=== PATIENT | female | born 1995 | race Two or more races ===

== ENCOUNTER → 2024-06-16 | Outpatient (CLI) | payer OTHER ==
[2024-06-16 13:04] LABS: HEMATOCRIT 33.3 % (36.0-47.0); HEMOGLOBIN 9.9 g/dl (12.0-15.5); MEAN CORPUSCULAR HEMOGLOBIN 22.7 pg (27.0-33.0); MEAN CORPUSCULAR HGB CONC 29.7 g/dl (32.0-36.5); MEAN CORPUSCULAR VOLUME 76.4 fl (80.0-96.0); PLATELET COUNT, AUTOMATED 301 10^3/uL (150-450); RED BLOOD COUNT 4.36 10^6/uL (4.00-5.40); WHITE BLOOD COUNT 8.9 10^3/uL (4.0-10.0)
[2024-06-16 13:33] LABS: HIV 1&2 SCREEN NEGATIVE (NEGATIVE)
[2024-06-16 13:41] LABS: HEPATITIS C VIRUS ABY INDEX 0.06 INDEX (<0.8)
[2024-06-16 15:06] LABS: Trichomonas vaginalis (AMP) NOT DETECTED (NEGATIVE)
[2024-06-19 14:41] LABS: GC DNA AMPLIFICATION NEGATIVE (NEGATIVE)
== END ==
LOC: M PLALAB 09:37
PROVIDERS: ATTEND Obstetrics & Gynecology
DX: Z34.80 Encounter for supervision of other normal pregnancy, unspecified trimester (principal)

== ENCOUNTER → 2024-06-21 | Outpatient (CLI) | payer OTHER | LOC: M RAD 15:37 | PROVIDERS: ATTEND Obstetrics & Gynecology | DX: Z34.80 Encounter for supervision of other normal pregnancy, unspecified trimester (principal); Z3A.24 24 weeks gestation of pregnancy ==

== ENCOUNTER → 2024-08-31 | Outpatient (CLI) | payer OTHER ==
[2024-08-31 15:21] LABS: PLATELET COUNT, AUTOMATED 246 10^3/uL (150-450)
[2024-08-31 15:51] LABS: GLUCOSE CHALLENGE TEST 1 HOUR 59 MG/DL (LESS THAN 140)
[2024-08-31 16:20] LABS: HIV 1&2 SCREEN NEGATIVE (NEGATIVE)
[2024-08-31 16:28] LABS: HEPATITIS C VIRUS ABY INDEX < 0.02 INDEX (<0.8)
[2024-08-31 16:41] LABS: GC DNA AMPLIFICATION NEGATIVE (NEGATIVE)
[2024-08-31 16:57] LABS: Trichomonas vaginalis (AMP) NOT DETECTED (NEGATIVE)
== END ==
LOC: M PLALAB 10:13
PROVIDERS: ATTEND Advanced Practice Midwife
DX: Z34.83 Encounter for supervision of other normal pregnancy, third trimester (principal)

== ENCOUNTER → 2024-09-14 | Outpatient (CLI) | payer OTHER | LOC: M RAD 11:11 | PROVIDERS: ATTEND Advanced Practice Midwife | DX: O26.849 Uterine size-date discrepancy, unspecified trimester (principal) ==

== ENCOUNTER → 2024-09-26 | Outpatient (REF) | payer OTHER | LOC: M SFHCWAGY 16:41 | PROVIDERS: ATTEND Advanced Practice Midwife | DX: Z34.93 Encounter for supervision of normal pregnancy, unspecified, third trimester (principal) ==

== ENCOUNTER 2024-10-06 13:05 | Outpatient (CLI) | payer OTHER ==
[~2024-10-06 13:05] MED LIST: ALBUTEROL SULFATE 2.5 MG/0.5 ML INH CONCENTRATE NEB SOLN INH PRN; EPINEPHrine INJ 1 MG/ML 1ML AMP IM PRN; diphenhydrAMINE 50 MG/ML VIAL IV PRN
[2024-10-06 13:15] VITALS: BP 125/77; O2SAT 99
[2024-10-06] MEDS: FERRIC CARBOXYMALTOSE 750 MG (VIAL MATE) IN 100ML NS IV ONE (13:22)
[2024-10-06 14:00] VITALS: BP 117/71; O2SAT 97
== END 2024-10-06 14:08 ==
LOC: M INFU 13:05
PROVIDERS: ATTEND Advanced Practice Midwife
DX: O99.013 Anemia complicating pregnancy, third trimester (principal); Z3A.00 Weeks of gestation of pregnancy not specified
CPT/HCPCS: 96365; J1439

== ENCOUNTER 2024-10-13 05:31 | Inpatient (IN) | payer OTHER ==
[~2024-10-13] VITALS: Ht 175.3 cm; Wt 101.2 kg
[2024-10-13] VITALS (48 sets, daily range): BP systolic 80–134; BP diastolic 50–80; O2SAT 97–100
[2024-10-13] MEDS ORDERED: LIDOCAINE 1% MDV 20 ML VIAL INFIL PRN (06:40)
[2024-10-13] MEDS ORDERED: METHYLERGONOVINE MALEATE 0.2 MG/ML 1 ML VIAL IM PRN (06:40)
[2024-10-13] MEDS ORDERED: OXYTOCIN DRIP 30 UNITS in IV 1 EA IV PRN (06:40)
[2024-10-13] MEDS ORDERED: TRANEXAMIC ACID INJection 1,000 MG in NS 100 ML IV PRN (06:40)
[2024-10-13 06:49] LABS: BASO # 0.0 10^3/uL (0.0-0.2); BASO % 0.5 % (0.0-1.0); EOS # 0.3 10^3/uL (0.0-0.5); EOS % 3.2 % (0.0-3.0); LYMPH # 1.7 10^3/uL (1.5-5.0); LYMPH % 19.3 % (24.0-44.0); MONO # 0.7 10^3/uL (0.0-0.8); MONO % 7.8 % (2.0-8.0); NEUTROPHILS # 6.0 10^3/uL (1.5-8.5); NEUTROPHILS % 68.2 % (36.0-66.0); PLATELET COUNT, AUTOMATED 243 10^3/uL (150-450)
[2024-10-13 07:49] LABS: HIV 1&2 SCREEN NEGATIVE (NEGATIVE)
[2024-10-13 07:57] LABS: HEPATITIS C VIRUS ABY INDEX < 0.02 INDEX (<0.8)
[2024-10-13] MEDS ORDERED: TUMS500C PO (09:25)
[2024-10-13] MEDS ORDERED: PRENTAB9 PO (09:25)
[2024-10-13] MEDS ORDERED: HOME MED LIST COMPLETE! XX SCH (09:30)
[2024-10-13] MEDS: LR 1,000 ML IV SCH (15:12)
[2024-10-13] MEDS ORDERED: EPIDURAL/PCA KEYS XX PRN (15:25)
[2024-10-13] MEDS ORDERED: NALOXONE INJ 0.4 MG/1 ML VIAL IV PRN (15:25)
[2024-10-13] MEDS ORDERED: LR 500 ML IV PRN (15:25)
[2024-10-13] MEDS ORDERED: ONDANSETRON 4MG 2ML VIAL IV PRN (15:25)
[2024-10-13] MEDS ORDERED: diphenhydrAMINE 50 MG/ML VIAL IV PRN (15:25)
[2024-10-13] MEDS ORDERED: FENTANYL 2 MCG/ML ROPIVACAINE 0.2% IN 0.9% NACL 100 ML IVBAG As Ordered ONE (15:26)
[2024-10-13] MEDS: FENTANYL/ROPIVACAINE/NACL BAG 100 ML EPIDURAL SCH (16:00)
[2024-10-13] MEDS ORDERED: LR 1,000 ML IV SCH (16:15)
[2024-10-13] MEDS: OXYTOCIN DRIP 30 UNITS in IV 1 EA IV SCH (16:27)
[2024-10-13] MEDS ORDERED: ANUSOL HC CREAM 30 GM TOP PRN (21:45)
[2024-10-13] MEDS ORDERED: CALCIUM CARBONATE 500 MG CHEW U/D PO PRN (21:45)
[2024-10-13] MEDS ORDERED: DIBUCAINE 1% OINTMENT 30 GM TOP PRN (21:45)
[2024-10-13] MEDS ORDERED: METHYLERGONOVINE MALEATE 0.2 MG TAB PO PRN (21:45)
[2024-10-13] MEDS ORDERED: IBUPROFEN 600 MG TAB PO PRN (21:45)
[2024-10-13] MEDS ORDERED: RHOGAM 300MCG (1500IU) INJ IM SCH (21:45)
[2024-10-13] MEDS: diphenhydrAMINE 50 MG/ML VIAL IV PRN (22:09)
[2024-10-14] MEDS: IBUPROFEN 800 MG TAB PO PRN (04:50)
[2024-10-14 05:45] VITALS: BP 108/59; O2SAT 99
[2024-10-14] MEDS: PRENATAL VITAMINS CHEWABLE TABLET PO SCH (07:52)
[2024-10-14] MEDS: ACETAMINOPHEN 500 MG TAB PO PRN (07:52)
[2024-10-14 18:00] VITALS: BP 114/57; O2SAT 98
[2024-10-14] MEDS: DOCUSATE SODIUM 100 MG CAPSULE PO PRN (19:39)
[2024-10-14] MEDS: ACETAMINOPHEN 325 MG TAB PO PRN (19:40)
[2024-10-15 05:47] VITALS: BP 101/55; O2SAT 98
[2024-10-15] MEDS: MEASLES,MUMPS,RUBELLA VACCINE INJ (MMR-II) SC.IMMUN ONE (09:00)
[2024-10-15] MEDS ORDERED: ACET-683 PO (11:48)
[2024-10-15] MEDS ORDERED: IBUP80TA PO (11:48)
== END 2024-10-15 12:30 | disposition home or self-care (01) | DRG 807 ==
LOC: M LDO 05:31 → M LDI 06:12 → M OBS 23:35
PROVIDERS: ADMIT Obstetrics & Gynecology; ATTEND Advanced Practice Midwife
PROC: 10E0XZZ Delivery of Products of Conception, External Approach (ICD-10-PCS; principal; 2024-10-13)
PROC: 0HQ9XZZ Repair Perineum Skin, External Approach (ICD-10-PCS; 2024-10-13)
PROC: 10907ZC Drainage of Amniotic Fluid, Therapeutic from Products of Conception, Via Natural or Artificial Opening (ICD-10-PCS; 2024-10-13)
DX: O48.0 Post-term pregnancy (principal); Z37.0 Single live birth; Z3A.40 40 weeks gestation of pregnancy; O73.1 Retained portions of placenta and membranes, without hemorrhage; O70.0 First degree perineal laceration during delivery